=== PATIENT | male | born 1995 | race Caucasian/White ===

== ENCOUNTER 2016-07-24 17:20 | Emergency (ER) | payer OTHER ==
--- NOTE | 2016-07-24 17:59 | ED DYSPNEA/ASTHMA COMPLAINT ---
History of Present Illness General Chief Complaint: General Adult Stated Complaint: DIZZINESS WEAKNESS SUDDEN ONSET TODAY Source: patient Exam Limitations: no limitations Vital Signs & Intake/Output Vital Signs & Intake/Output Vital Signs Date Time Temp Pulse Resp B/P Pulse O2 O2 Flow FiO2 Ox Delivery Rate 07/24 2215 80 16 124/70 99 Room Air 07/24 2119 99 Room Air 07/24 2006 94 07/24 1820 100 07/24 1727 97.5 105 26 119/73 99 Room Air ED Intake and Output 07/25 0000 07/24 1200 Intake Total Output Total Balance Patient 190 lb Weight Allergies Coded Allergies: mushroom (ITCHY 07/24/16) Reconcile Medications Cetirizine HCl/Pseudoephedrine (Sm All Day Allergy-D Tablet) 5 MG-120 MG TAB.ER.12H 1 TAB PO DAILY ALLERGIES (Reported) Triage Note: PT TO TRIAGE WITH C/O DIZZINESS, SOB, INTERMITTENT PALPITATIONS, LEFT SIDED CHEST PAIN 6/10, NUBNESS AND TINGLING TO BILAT UE SINCE 11AM. PT TO [facility] FOR EKG. Triage Nurses Notes Reviewed? yes Onset: Abrupt Duration: day(s):, intermittent Timing: recent history Severity: mild, moderate HPI: 21-year-old male comes into emergency room for further evaluation of chest pain and shortness of breath. Patient reports she was having some chest pain on Monday and some difficulty breathing. Symptoms resolved yesterday and came back on today. Patient reports that he 7 difficulty with ambulation. Patient felt like he couldn't breathe. Denies any cocaine use. Denies any prior symptoms of this before. Patient reports that he feels like his heart was racing very fast. He does admit to drinking a lot of energy drinks on a regular basis. History of asthma. Denies any other associated symptoms. (VEENA DUQUE) Past History Travel History Traveled to [place] past 21 day No Medical History Any Pertinent Medical History? see below for history Respiratory: asthma Surgical History Surgical History: non-contributory Psychosocial History What is your primary language Martiniquais Tobacco Use: Quit >30 days ago ETOH Use: occasional use Illicit Drug Use: denies illicit drug use Family History Hx Contributory? No (VEENA DUQUE) Review of Systems Review of Systems Constitutional: Reports: no symptoms. EENTM: Reports: no symptoms. Respiratory: Reports: see HPI. Cardiovascular: Reports: see HPI. GI: Reports: no symptoms. Genitourinary: Reports: no symptoms. Musculoskeletal: Reports: no symptoms. Skin: Reports: no symptoms. Neurological/Psychological: Reports: no symptoms. Hematologic/Endocrine: Reports: no symptoms. Immunologic/Allergic: Reports: no symptoms. All Other Systems: Reviewed and Negative (VEENA DUQUE) Physical Exam Physical Exam General Appearance: well developed/nourished, no apparent distress, alert Head: atraumatic, normal appearance Eyes: Bilateral: normal appearance, EOMI. Ears, Nose, Throat: normal pharynx, normal ENT inspection Neck: normal inspection Respiratory: normal breath sounds Cardiovascular: regular rate/rhythm Gastrointestinal: normal bowel sounds Extremities: normal inspection Neurologic/Psych: awake, alert, oriented x 3, normal gait Skin: intact, normal color Core Measures ACS in differential dx? No Severe Sepsis Present: No Septic Shock Present: No (VEENA DUQUE) Progress Differential Diagnosis: asthma, AMI, bronchitis, costochondritis, CHF, COPD, musculoskeletal pain, pericarditis, pulmonary embolism, pneumonia, pneumothorax, rib fracture, unstable angina Plan of Care: Orders Procedure Date/time Status TROPONIN LEVEL 07/24 215 Complete EKG 07/24 215 Active Telemetry/Magistrate Assistant 07/24 174 Active TROPONIN LEVEL 07/24 1749 Complete D-DIMER 07/24 1749 Complete COMPREHENSIVE METABOLIC PANEL 07/24 1749 Complete CBC WITHOUT DIFFERENTIAL 07/24 174 Complete EKG 07/24 1732 Active Laboratory Tests 07/24/16 2113: Troponin I < 0.01 07/24/16 1752: CBC w Diff NO MAN DIFF REQ, RBC 5.32, MCV 90.8, MCH 30.7, RDW 12.9, MPV 7.9, Gran % 57.4, Lymphocytes % 31.2, Monocytes % 9.0, Eosinophils % 2.1, Basophils % 0.3, Absolute Granulocytes 4.3, Absolute Lymphocytes 2.4, Absolute Monocytes 0.7 H, Absolute Eosinophils 0.2, Absolute Basophils 0, PUBS MCHC 33.8 07/24/16 1750: Anion Gap 16, Estimated GFR > 60, BUN/Creatinine Ratio 11.8, Glucose 107 H, Calcium 10.1, Total Bilirubin 0.8, AST 23, ALT 38, Alkaline Phosphatase 65, Troponin I < 0.01, Total Protein 7.6, Albumin 4.7, Globulin 2.9, Albumin/ Globulin Ratio 1.6, D-Dimer < 200 Diagnostic Imaging: Viewed by Me: Radiology Read. Discussed w/RAD: Radiology Read. Radiology Impression: SERVICE DATE: 07/24/16 EXAM TYPE: RAD - XRY-CHEST XRAY, PA AND LATERAL EXAMINATION: XR CHEST CLINICAL INFORMATION: Shortness of breath COMPARISON: None TECHNIQUE: 2 views of the chest were obtained. FINDINGS: The cardiomediastinal silhouette and pulmonary vascularity are normal. The lungs are clear. No pleural effusions or pneumothorax. The visualized bony thorax is within normal limits. IMPRESSION: No acute cardiopulmonary findings. DICTATED BY : LANDEN DIAZ MD Initial ED EKG: sinus arrhythmia, rate 87, normal QRSs, normal P waves, Repeat EKG: changed (no sinus arrhythmia) (LIONEL SMITH,VEENA) Departure Departure Disposition: HOME OR SELF CARE Condition: Stable Clinical Impression Primary Impression: Atypical chest pain Referrals: PATIENT HAS NO PRIMARY CARE DR Additional Instructions: Follow-up with your primary care doctor. Return if any concerns worsening symptoms. Please go over all results of today's visit with your primary care doctor. Contact your primary care doctor to let them know you were here in the emergency room. There may be nonspecific findings which may not be related to your visit today here in the emergency room but may require further evaluation and chronic monitoring by your primary care doctor. If you had a laceration today the chance of foreign body always remains. You should follow-up with your primary care doctor for recheck in 3-5 days for a wound check. If you had an x-ray done there is a chance that a fracture could have been missed on initial read and you should follow-up with your primary care doctor for repeat x-rays if symptoms persist. If your blood pressure was elevated here in the emergency room please have rechecked by her primary care doctor within the next 48 hours by your primary care doctor. If you were prescribed a narcotic here in the emergency room or any type of controlled substances you're not allowed to drive while taking this medication or operate any type of heavy machinery. Narcotics can make you feel lightheaded dizziness nausea and can cause constipation. You may need to supervisor opening and picking a stool softener. Thank you for choosing [facility] emergency room. Please return to the emergency room immediately if you have any other concerns worsening of symptoms. Departure Forms: Customer Survey General Discharge Information Comments 07/25/2016 12:12:16 AM Patient keeps asking when he can leave. When patient had been initially reevaluated and was told everything was normal he was reporting that he was still having active chest pain. I told the patient that we will repeat an EKG as well as a second heart attack test. He was in agreement with plan. Within a couple hours after this plan patient became anxious and said that he felt better and he wanted to leave. He was no longer having any pain. The second EKG and troponin was done at 3 hours instead of 4 hours. The EKG was reviewed with Dr. Monroy. No acute changes appreciated. Second troponin normal. Patient standing outside door asking when he can leave. Patient does not appear to be in any type of distress upon discharge and has no pain at all. Patient was instructed to follow-up with primary care doctor. No suspicion for pulmonary embolism. Patient understands and agrees with plan of care. (VEENA DUQUE) PA/PILOT CAPTAIN Co-Sign Statement Statement: ED Attending supervision documentation- [] I saw and evaluated the patient. I have also reviewed all the pertinent lab results and diagnostic results. I agree with the findings and the plan of care as documented in the PA's/PILOT CAPTAIN's documentation. [x] I have reviewed the ED Record and agree with the PA's/PILOT CAPTAIN's documentation. [] Additions or exceptions (if any) to the PAs/PILOT CAPTAIN's note and plan are summarized below: [] (JAVIER PANTOJA,NANCY Robison) Critical Care Note Critical Care Note Critical Care Time: non-applicable (VEENA DUQUE)
[2016-07-24 18:00] LABS: ABSOLUTE BASOPHIL COUNT 0 /CUMM (0.0-0.2); ABSOLUTE EOSINOPHIL COUNT 0.2 /CUMM (0.0-0.7); ABSOLUTE GRANULOCYTE CT 4.3 /CUMM (1.4-6.5); ABSOLUTE LYMPH COUNT 2.4 /CUMM (1.2-3.4); ABSOLUTE MONOCYTE COUNT 0.7 /CUMM (0.10-0.60); BASOPHIL % 0.3 % (0.0-2.0); EOSINOPHIL % 2.1 % (0-5); GRANULOCYTE % 57.4 % (42.2-75.2); HEMATOCRIT 48.3 % (42-52); MEAN CORPUSCULAR HGB 30.7 PG (27.0-31.0); MEAN CORPUSCULAR HGB CONC 33.8 G/DL (33.0-37.0); MEAN CORPUSCULAR VOLUME 90.8 FL (80.0-94.0); MEAN PLATELET VOLUME 7.9 FL (7.4-10.4); PLATELET COUNT 259 /CUMM (130-400); RBC DISTRIBUTION WIDTH 12.9 % (11.5-14.5); RED BLOOD CELL CT 5.32 /CUMM (4.70-6.10); WHITE BLOOD CELL COUNT 7.6 /CUMM (4.8-10.8)
--- NOTE | 2016-07-24 18:18 | RADIOLOGY REPORT ---
EXAMINATION: XR CHEST CLINICAL INFORMATION: Shortness of breath COMPARISON: None TECHNIQUE: 2 views of the chest were obtained. FINDINGS: The cardiomediastinal silhouette and pulmonary vascularity are normal. The lungs are clear. No pleural effusions or pneumothorax. The visualized bony thorax is within normal limits. IMPRESSION: No acute cardiopulmonary findings.
[2016-07-24] MEDS ORDERED: [UNRECOGNIZED DRUG - OTHER] PO (18:45)
[2016-07-24 22:15] VITALS: BP 124/70
== END 2016-07-24 22:25 ==
LOC: ERH 17:20
PROVIDERS: Physician Assistant Medical
DX: R07.89 Other chest pain (principal)
CPT/HCPCS: 1263; 93005; 93010; 96374; J1885